=== PATIENT | male | born 1985 | race Hispanic/Latino ===

== ENCOUNTER 2016-11-23 09:51 | Inpatient (IN) | payer OTHER ==
[~2016-11-23] VITALS: Ht 170.2 cm; Wt 82.6 kg
[2016-11-23] MEDS ORDERED: ZOFR20TA PO (10:00)
[2016-11-23] MEDS ORDERED: TYLE500T78 PO (10:00)
[2016-11-23] MEDS ORDERED: diphenhydrAMINE INJ 50MG/ML VIAL (J1200) IV ONE (10:30)
[2016-11-23] MEDS ORDERED: METOCLOPRAMIDE INJ 10MG/2ML VIAL (J2765) IV ONE (10:30)
[2016-11-23] MEDS ORDERED: KETOROLAC 30 MG/ML VIAL (J1885) IV ONE (10:30)
[2016-11-23] MEDS ORDERED: NS 1,000 ML IV ONE (10:30)
[2016-11-23] MEDS ORDERED: MECLIZINE 25 MG TABLET PO ONE (10:30)
[2016-11-23] MEDS: MORPHINE 4 MG/ML 1ML SYRINGE IV ONE ×2 (10:45→10:51)
--- NOTE | 2016-11-23 11:09 | REP ---
CT BRAIN WITHOUT CONTRAST: HISTORY: Several day history of spontaneous onset headache , nausea, vomiting and dizziness. No comparison imaging. FINDINGS: Bone window settings demonstrate an intact bony calvarium. Visualized paranasal sinuses are clear. No intraorbital abnormality is seen. In the superior aspect of the cerebellar hemispheres, across the midline, the CT images demonstrate a 4.7 x 1.4 x 2.3 cm hyperdensity consistent with a parenchymal hemorrhage. There is a minimal adjacent vasogenic edema to the right of midline. Very slight compression of the fourth ventricle. Third and lateral ventricles are normal in appearance and size. Dawson-white differentiation pattern is normal above the tentorium. No midline shift is seen. No other evidence of hemorrhage. IMPRESSION: Unusual distribution parenchymal hemorrhage superior cerebellum across the midline, 4.7 cm in greatest diameter. Recommend MRI brain without and with IV gadolinium and MRA angiography. Findings were telephoned to the referring provider, GEE Mclain at that time of this dictation. Signed by Sameer Ocasio MD 11/23/2016 03:20 P
[2016-11-23 11:12] LABS: MEAN CORPUSCULAR HEMOGLOBIN 32.1 pg (27.0-33.0); MEAN CORPUSCULAR HGB CONC 36.8 g/dl (32.0-36.5); MEAN CORPUSCULAR VOLUME 87.4 fl (80.0-96.0); RED CELL DISTRIBUTION WIDTH 12.2 % (11.5-14.5)
[2016-11-23] MEDS ORDERED: ISOVUE-370 76% 100ML VIAL (Q9967) As Ordered ONE (11:12)
[2016-11-23 11:15] LABS: ALBUMIN 4.2 GM/DL (3.2-5.2); ALBUMIN/GLOBULIN RATIO 1.17 (1.00-1.93); ALKALINE PHOSPHATASE 84 U/L (45-117); ALT/SGPT 28 U/L (12-78); ANION GAP 5 MEQ/L (8-16); AST/SGOT 19 U/L (15-37); BILIRUBIN,DIRECT 0.2 MG/DL (0.0-0.2); BILIRUBIN,TOTAL 0.7 MG/DL (0.2-1.0); BLOOD UREA NITROGEN 20 MG/DL (7-18); CALCIUM LEVEL 8.7 MG/DL (8.5-10.1); CARBON DIOXIDE LEVEL 30 MEQ/L (21-32); CHLORIDE LEVEL 107 MEQ/L (98-107); GLOMERULAR FILTRATION RATE > 60.0 (>60); GLUCOSE, FASTING 95 MG/DL (70-105); POTASSIUM SERUM 3.9 MEQ/L (3.5-5.1); SODIUM LEVEL 142 MEQ/L (136-145); TOTAL PROTEIN 7.8 GM/DL (6.4-8.2)
[2016-11-23 11:30] LABS: ADD MANUAL DIFFER YES; DIFF SLIDE NUMBER 158
[2016-11-23 11:37] LABS: BASOPHILS 2 % (0-4); PLATELET CLUMPS LARGE AMT
[2016-11-23 11:48] LABS: ERYTHROCYTE SEDIMENTATION RATE 6 mm/hr (0-15)
--- NOTE | 2016-11-23 12:23 | REP ---
CT ANGIO OF THE BRAIN WITH IV CONTRAST: HISTORY: Intracranial hemorrhage. CT CONTRAST DOSE: 100 mL of intravenous Isovue 370. TECHNIQUE: Helical scanning is acquired. 2 mm axial images are reformatted. Maximal intensity projection images are generated reviewed in the coronal and sagittal imaging planes. Multiplanar reformation images are generated. In addition, surface rendered 3D imaging is generated and reviewed. CT ANGIOGRAPHIC FINDINGS: The skull base segments of the internal carotid arteries are unremarkable. The anterior and middle cerebral arteries are normal in appearance. Distal vertebral and basilar arteries are intact. The superior cerebellar and posterior cerebral arteries are open bilaterally. No vessel cutoff is seen. There is no evidence of rivera aneurysm. No arteriovenous malformation is visible. There is no evidence of dural sinus thrombosis. No abnormal vascular structure is seen in the vicinity of the posterior fossa hemorrhage observed on today's CT study. IMPRESSION: Negative CT angiography of the brain. There is no evidence of large vessel or high-flow arteriovenous malformation. No rivera aneurysm is seen. No vessel cutoff is noted. No evidence of dural sinus thrombosis. Signed by Sameer Ocasio MD 11/23/2016 03:20 P
--- NOTE | 2016-11-23 12:26 | REP ---
CT angiography of the neck with IV contrast: History: Intracranial hemorrhage. CT contrast dose: 100 mL of intravenous Isovue 370. CT technique: Helical scanning is acquired. 2 mm axial images are reformatted. Coronal and sagittal multiplanar re-formation images are generated. Thick slab maximum intensity projection images are generated on 3-D workstation along the surface rendered rotational 3-D images. CT angiographic findings: Great vessel origins are unremarkable. Common carotid and bilateral cerebellar arteries are patent and unremarkable in the neck. Carotid bifurcations are free of atherosclerotic disease. There is no evidence of carotid artery or vertebral artery dissection on either side. No abnormal vasculature is seen. Impression: Normal CT angiography of the neck. Signed by Sameer Ocasio MD 11/23/2016 03:20 P
[2016-11-23 13:12] LABS: INR 1.05
[2016-11-23] MEDS ORDERED: levETIRAcetam INJection 1,000 MG in D5W 100 ML IV ONE (16:00)
[2016-11-23] MEDS: KCL 20MEQ IN D5/NS 1000ML 1,000 ML IV SCH (16:25)
[2016-11-23] MEDS: ACETAMINOPHEN TAB 650MG DOSE (2X325MG) PO SCH ×2 (16:56→21:17)
[2016-11-23 17:30] VITALS: BP 101/55
[2016-11-23] MEDS: ONDANSETRON 4MG/2ML VIAL (J2405) IV SCH (18:11)
[2016-11-23 20:00] VITALS: BP 100/62
[2016-11-23 21:00] VITALS: BP 97/64
[2016-11-23] MEDS: levETIRAcetam 250MG TABLET (KEPPRA) PO SCH (21:18)
[2016-11-23 22:00] VITALS: BP 91/50
[2016-11-23 23:00] VITALS: BP 94/54
[2016-11-24] VITALS (18 sets, daily range): BP systolic 87–133; BP diastolic 47–94
[2016-11-24] MEDS: KCL 20MEQ IN D5/NS 1000ML 1,000 ML IV SCH ×4 (00:32→19:47)
[2016-11-24] MEDS: ACETAMINOPHEN TAB 650MG DOSE (2X325MG) PO SCH ×6 (00:32→19:47)
[2016-11-24] MEDS: ONDANSETRON 4MG/2ML VIAL (J2405) IV SCH ×4 (00:32→17:42)
[2016-11-24 04:51] LABS: MEAN CORPUSCULAR HEMOGLOBIN 31.5 pg (27.0-33.0); MEAN CORPUSCULAR HGB CONC 35.9 g/dl (32.0-36.5); MEAN CORPUSCULAR VOLUME 87.7 fl (80.0-96.0); RED CELL DISTRIBUTION WIDTH 12.2 % (11.5-14.5)
[2016-11-24 05:06] LABS: ALBUMIN 3.4 GM/DL (3.2-5.2); ALBUMIN/GLOBULIN RATIO 1.13 (1.00-1.93); ALKALINE PHOSPHATASE 67 U/L (45-117); ALT/SGPT 20 U/L (12-78); ANION GAP 5 MEQ/L (8-16); AST/SGOT 14 U/L (15-37); BILIRUBIN,TOTAL 0.7 MG/DL (0.2-1.0); BLOOD UREA NITROGEN 13 MG/DL (7-18); CALCIUM LEVEL 8.1 MG/DL (8.5-10.1); CARBON DIOXIDE LEVEL 29 MEQ/L (21-32); CHLORIDE LEVEL 112 MEQ/L (98-107); CREATININE FOR GFR 1.12 MG/DL (0.70-1.30); GLOMERULAR FILTRATION RATE > 60.0 (>60); GLUCOSE, FASTING 110 MG/DL (70-105); POTASSIUM SERUM 4.1 MEQ/L (3.5-5.1); SODIUM LEVEL 146 MEQ/L (136-145); TOTAL PROTEIN 6.4 GM/DL (6.4-8.2)
--- NOTE | 2016-11-24 06:00 | REPUSA ---
CLINICAL HISTORY: Intracerebral hematoma. Followup exam. TECHNIQUE: Multiple axial brain CT scan sections were obtained from base to vertex without contrast a dministration. COMMENTS: Comparison to the prior exam performed on 11/23/2016. 4.4x1.3 cm acute intraparenchymal hematoma of the cerebellar vermis, left cerebellar hemisphere and t he right cerebellar hemisphere extending to its lateral aspect. Unchanged mild associated edema. The study shows normal configuration of sella turcica. There is no mass effect or midline shift. No hydrocephalus is present. No abnormal calcifications are noted. The sinuses and mastoid air cells are patent. IMPRESSION: Unchanged intracerebellar hematoma. Unchanged mild edema. Thank you for your kind referral of this patient.
[2016-11-24] MEDS: levETIRAcetam 250MG TABLET (KEPPRA) PO SCH ×3 (10:04→21:11)
[2016-11-24 12:20] LABS: PLTBLUE- EDTA FREE CALC 143 K/mm3 (172-450); PLTBLUE- EDTA FREE MACHINE 130 K/mm3 (172-450)
[2016-11-24 12:29] LABS: REASON FOR REVIEW COMPREHENSIVE REVIEW
--- NOTE | 2016-11-24 13:51 | CR ---
DATE OF CONSULTATION: 11/24/2016 REASON FOR REFERRAL: Intraparenchymal brain hemorrhage, to rule out hematologic/bleeding disorder. HISTORY OF THE PRESENT ILLNESS: Mr. Lazo is a 31-year-old man who developed sudden headaches 3 days ago. He eventually went to [facility] Emergency Room (ER) yesterday and had a CT scan, which showed a parenchymal hemorrhage in the superior cerebellum. He was admitted for this. He is currently on observation. A repeat head CT showed no change in his intracerebellar hematoma and unchanged mild edema. He has been started on levetiracetam. Hematology was consulted to rule out a hematologic or bleeding disorder. PAST MEDICAL HISTORY: None. SURGICAL HISTORY: No history of surgery in the past. He did have a history of wisdom tooth extraction with no extraordinary bleeding. Mr. Lazo also denies any easy bruising. He has had no epistaxis. No gum bleeding. No rectal bleeding and no urinary bleeding. No known drug allergies. MEDICATIONS: Acetaminophen and ondansetron; there were the medications prior to admission. His medications now include levetiracetam, ondansetron and acetaminophen. FAMILY HISTORY: No history of bleeding disorder. PERSONAL/SOCIAL HISTORY: He does not smoke. He used to drink alcoholic beverages but stopped drinking 2 years ago. He used to drink alcoholic beverages only occasionally according to him. He is . He has a 7-year-old son. He reports that all of his siblings are fine with no medical issues. On physical exam, he was lying comfortably in the bed, not in distress. He had pinkish conjunctivae, anicteric sclerae. No oral mucosal lesions. No palpable cervical, inguinal or axillary lymphadenopathy. Lungs: Clear. No rales, rhonchi or wheeze. S1, S2 regular. No murmur. No gallop. No hematomas or ecchymoses on his upper and lower extremities, front and back. Abdomen: Soft, nontender, no guarding. No hepatosplenomegaly. No palpable masses. Positive bowel sounds. Extremities: No calf swelling, calf tenderness and no pedal edema. No clubbing. No cyanosis. IMPRESSION AND PLAN: Mr. Lazo is a 31-year-old man who is currently admitted for an intracerebellar hemorrhage. On the question of a bleeding disorder, Mr. Lazo does not present with any symptoms of a bleeding disorder. He has no easy bruising, and he has not had any bleeding problems. He also has no history of anemia and no history of blood transfusions. His CBC today showed a platelet count of 106k/mm3. His hemoglobin level came back at 12.9 g/dL. He had a normal WBC count. There was note of platelet clumping on yesterday's CBC. His coagulation profile, PT, PTT came back normal. I discussed with Mr. Lazo that he likely does not have a bleeding disorder, but we will recheck his platelet count today and have the pathologist review his peripheral smear for any abnormalities. Thank you very much for this referral. Copy To: Dr. Vyas cc: Marquez Vyas MD
--- NOTE | 2016-11-24 21:24 | CR ---
DATE OF CONSULTATION: 11/24/2016 REFERRING PHYSICIAN: Dr. Marquez Vyas REASON FOR CONSULTATION: Cerebellar hemorrhage. HISTORY OF PRESENT ILLNESS: Rupert Lazo is a 31-year-old man was at his baseline state of health until yesterday evening, when he was watching TV and went to use the restroom. It was around 7 p.m. and he suddenly fel 9/10 headache behind his eyes. He suddenly felt dizzy and imbalance. He felt nausea, vomiting, dizziness, blurred vision, photophobia, and phonophobia. Initially, he thought that he was having a severe migraine. He came to emergency department, where CT scan of his head showed a 4.6 cm bilateral cerebellar hemorrhage. The patient states that his great- grandmother of a subarachnoid hemorrhage due to rupture of aneurysm in her brain. His grandfather had an aneurysm in his abdomen. He denies taking any new medications. He denies any trauma or falls. He denies any neck pain, back pain, seizures, dysphagia, dysarthria, diplopia, urinary incontinence. HOME MEDICATIONS: None. PAST MEDICAL HISTORY: None. ALLERGIES: None. SOCIAL HISTORY: He denies smoking, alcohol, or illicit drugs. FAMILY HISTORY: His great-grandmother had cerebral aneurysm and subarachnoid hemorrhage. His grandfather had abdominal aortic aneurysm. REVIEW OF SYSTEMS: All systems were reviewed and were found to be noncontributory. PHYSICAL EXAMINATION: Temperature 96.5, blood pressure 112/56, 97% saturation on room air, pulse 46, respiratory rate 20. HEART: Regular rate and rhythm. LUNGS: Clear to auscultation. No gross musculoskeletal abnormalities. EAR, NOSE, THROAT: Within normal limits. The patient is awake, alert, oriented to place, person, and time. Normal speech, comprehension, and repetition. Extraocular muscles are intact. No facial weakness. Tongue and uvula are midline. Strength 5/5 in all four extremities. Deep tendon flexes are 2+ throughout. Normal sensation. His gait is unsteady. He is mildly ataxic. He has gaze-evoked nystagmus. He has mild bilateral dysmetria, worse on left side. DIAGNOSTIC STUDIES: His CT scan of head yesterday and today showed stable 4.6 cm bilateral cerebellar hematoma. There is no compression of 4th ventricle or tonsillar herniation. His CT angiography of head and neck did not reveal any stenosis or cerebral aneurysm. ASSESSMENT: Bilateral midline 4.6 cm cerebellar hemorrhage of unclear etiology, as patient denies any history of trauma, hypertension, or use of anticoagulants. PLAN: 1. Topamax 25 mg by mouth twice a day to improve his dizziness symptomatically. 2. Continue telemonitoring and close monitoring in intensive care unit. His platelet count is 106, which is not significant enough to cause intracranial bleeding. Dr. yVas has consulted hematology to evaluate for any bleeding disorders. 3. Physical and occupational therapy. 4. MRA of brain. 5. Follow with our office in 1 month after hospital discharge. The patient will be closely monitored by neurosurgery and will follow with neurosurgery as well.
[2016-11-25] VITALS: BP 97/59
[2016-11-25 04:00] VITALS: BP 100/58
[2016-11-25] MEDS: ACETAMINOPHEN TAB 650MG DOSE (2X325MG) PO SCH ×4 (04:36→12:00)
[2016-11-25] MEDS: KCL 20MEQ IN D5/NS 1000ML 1,000 ML IV SCH ×2 (04:36→09:03)
[2016-11-25 05:02] LABS: MEAN CORPUSCULAR HEMOGLOBIN 31.4 pg (27.0-33.0); MEAN CORPUSCULAR VOLUME 87.2 fl (80.0-96.0); RED CELL DISTRIBUTION WIDTH 12.1 % (11.5-14.5); WHITE BLOOD COUNT 4.4 K/mm3 (4.0-10.0)
[2016-11-25 05:14] LABS: ALBUMIN 3.6 GM/DL (3.2-5.2); ALKALINE PHOSPHATASE 67 U/L (45-117); ALT/SGPT 24 U/L (12-78); ANION GAP 7 MEQ/L (8-16); AST/SGOT 19 U/L (15-37); CARBON DIOXIDE LEVEL 27 MEQ/L (21-32); CHLORIDE LEVEL 113 MEQ/L (98-107); CREATININE FOR GFR 0.93 MG/DL (0.70-1.30); GLOMERULAR FILTRATION RATE > 60.0 (>60); GLUCOSE, FASTING 108 MG/DL (70-105); POTASSIUM SERUM 3.7 MEQ/L (3.5-5.1); SODIUM LEVEL 147 MEQ/L (136-145); TOTAL PROTEIN 6.6 GM/DL (6.4-8.2)
[2016-11-25 05:36] LABS: BILIRUBIN,TOTAL 0.4 MG/DL (0.2-1.0)
[2016-11-25 05:42] LABS: BLOOD UREA NITROGEN 6 MG/DL (7-18)
[2016-11-25] MEDS: ONDANSETRON 4MG/2ML VIAL (J2405) IV SCH ×3 (06:01→13:04)
[2016-11-25 08:00] VITALS: BP 101/70
[2016-11-25] MEDS: levETIRAcetam 250MG TABLET (KEPPRA) PO SCH ×2 (09:02→20:47)
[2016-11-25 10:00] VITALS: BP 95/64
[2016-11-25 14:55] VITALS: BP 109/68
[2016-11-25] MEDS: ACETAMINOPHEN TAB 650MG DOSE (2X325MG) PO PRN (20:46)
[2016-11-25 22:00] VITALS: BP 107/56
[2016-11-26 06:10] LABS: MEAN CORPUSCULAR HEMOGLOBIN 32.1 pg (27.0-33.0); MEAN CORPUSCULAR VOLUME 86.7 fl (80.0-96.0); WHITE BLOOD COUNT 5.3 K/mm3 (4.0-10.0)
[2016-11-26 06:24] LABS: ALBUMIN 3.8 GM/DL (3.2-5.2); ALBUMIN/GLOBULIN RATIO 1.09 (1.00-1.93); ALKALINE PHOSPHATASE 74 U/L (45-117); ALT/SGPT 26 U/L (12-78); ANION GAP 7 MEQ/L (8-16); AST/SGOT 25 U/L (15-37); BILIRUBIN,TOTAL 0.4 MG/DL (0.2-1.0); BLOOD UREA NITROGEN 10 MG/DL (7-18); CALCIUM LEVEL 8.5 MG/DL (8.5-10.1); CARBON DIOXIDE LEVEL 29 MEQ/L (21-32); CHLORIDE LEVEL 105 MEQ/L (98-107); CREATININE FOR GFR 1.15 MG/DL (0.70-1.30); GLOMERULAR FILTRATION RATE > 60.0 (>60); GLUCOSE, FASTING 85 MG/DL (70-105); POTASSIUM SERUM 3.6 MEQ/L (3.5-5.1); SODIUM LEVEL 141 MEQ/L (136-145); TOTAL PROTEIN 7.3 GM/DL (6.4-8.2)
[2016-11-26 06:57] VITALS: BP 97/53
--- NOTE | 2016-11-26 07:06 | REP ---
CT BRAIN WITHOUT CONTRAST: CT brain is performed without IV contrast and compared to prior study of 11/24/2016. The known posterior fossa hemorrhage is stable in size and appearance with mild surrounding edema. No new areas of hemorrhage are seen. Ventricles are normal in size and position. There is no ventricular dilatation. There is midline shift. No other abnormalities are seen. IMPRESSION: Stable exam. Signed by Luis Carlos Dawson MD 11/26/2016 05:26 P
[2016-11-26] MEDS: levETIRAcetam 250MG TABLET (KEPPRA) PO SCH ×2 (09:13→20:29)
--- NOTE | 2016-11-26 10:03 | REP ---
MRA BRAIN WITHOUT CONTRAST: HISTORY: Cerebellar hemorrhage. COMPARISON: CT ANGIO head 11/23/2016. There is no aneurysm, arteriovenous malformation or atherosclerotic lesion. Major intracranial vessels are patent. The vertebral arteries are equal in size. An intraparenchymal hematoma is present in the cerebellum unchanged compared to the previous study. IMPRESSION: There is no aneurysm, arteriovenous malformation or atherosclerotic lesion. Signed by Ravi Rodas MD 11/26/2016 10:12 A
[2016-11-26] MEDS: ONDANSETRON 4MG/2ML VIAL (J2405) IV PRN ×2 (10:55→16:40)
[2016-11-26 14:00] VITALS: BP 94/55
[2016-11-26] MEDS ORDERED: METOCLOPRAMIDE 5 MG TAB PO PRN (17:00)
[2016-11-26] MEDS: ACETAMINOPHEN TAB 650MG DOSE (2X325MG) PO PRN (20:30)
[2016-11-26 22:00] VITALS: BP 116/72
[2016-11-27 06:00] VITALS: BP 121/68
[2016-11-27] MEDS: levETIRAcetam 250MG TABLET (KEPPRA) PO SCH ×2 (08:53→21:23)
[2016-11-27] MEDS: TOPIRAMATE (TopAMAX) 25 MG TAB PO SCH ×2 (08:58→21:23)
[2016-11-27 09:00] VITALS: BP 98/53
[2016-11-27 09:18] LABS: BASO % 0.6 % (0.0-1.0); EOS # 0.2 10^3/uL (0.0-0.50); EOS % 3.2 % (0.0-3.0); IMMATURE GRANULOCYTE % 0.2 % (0-0); LYMPH # 1.6 10^3/uL (1.5-4.5); LYMPH % 31.3 % (24.0-44.0); MEAN CORPUSCULAR HEMOGLOBIN 30.5 pg (27.0-33.0); MEAN CORPUSCULAR HGB CONC 35.1 g/dl (32.0-36.5); MEAN CORPUSCULAR VOLUME 86.7 fl (80.0-96.0); MONO # 0.4 10^3/uL (0.0-0.8); MONO % 7.1 % (0.0-5.0); NEUTROPHILS # 2.9 10^3/uL (1.8-7.7); NEUTROPHILS % 57.6 % (36.0-66.0); PLATELET COUNT, AUTOMATED 92 10^3/uL (150-450); RED CELL DISTRIBUTION WIDTH 12.4 % (11.5-14.5); WHITE BLOOD COUNT 5.1 10^3/uL (4.0-10.0)
[2016-11-27 09:57] LABS: ALBUMIN/GLOBULIN RATIO 1.25 (1.00-1.93); ALKALINE PHOSPHATASE 82 U/L (45-117); ALT/SGPT 29 U/L (12-78); ANION GAP 5 MEQ/L (8-16); AST/SGOT 25 U/L (15-37); BILIRUBIN,TOTAL 0.7 MG/DL (0.2-1.0); BLOOD UREA NITROGEN 14 MG/DL (7-18); CALCIUM LEVEL 9.3 MG/DL (8.5-10.1); CARBON DIOXIDE LEVEL 30 MEQ/L (21-32); CHLORIDE LEVEL 105 MEQ/L (98-107); CREATININE FOR GFR 1.13 MG/DL (0.70-1.30); GLOMERULAR FILTRATION RATE > 60.0 (>60); GLUCOSE, FASTING 96 MG/DL (70-105); MAGNESIUM LEVEL 2.2 MG/DL (1.8-2.4); POTASSIUM SERUM 4.3 MEQ/L (3.5-5.1); SODIUM LEVEL 140 MEQ/L (136-145); TOTAL PROTEIN 7.2 GM/DL (6.4-8.2)
[2016-11-27] MEDS: ACETAMINOPHEN TAB 650MG DOSE (2X325MG) PO PRN ×3 (12:25→23:56)
--- NOTE | 2016-11-27 15:02 | IPNPDOC ---
Text Note Date of Service The patient was seen on 11/27/16. NOTE Subjective: Patient is a 31 year old male with no significant PMhx who presented to the ER after he had a severe headache while watching TV. Upon arrival to the ER a CT scan revealed where CT a 4.6 cm bilateral cerebellar hemorrhage. He noted that his grandmother may have had an brain aneurysm. Patient was admitted to the neurosurgical service and did not require any intervention. Patient was seen and examined at the bedside. Currently he notes that he is still very dizzy upon sitting up and complains of nausea, but no vomiting. Objective: Vitals (See below) General: Lying in bed, no acute distress, comfortable, AAOx3 HEENT: NC, AT CVS: RRR, +S1S2 Lungs: Fair air entry b/l, -w/r/r Abdomen: Soft, ND, NT Extremities: - Edema, - Calf tenderness Assessment and plan: Parenchymal hemorrhage superior cerebellum across midline - Presented with severe headache, nausea, photophobia and phonobhonia - Physical was unrevealing - Labs revealed thrombocytopenia - Head CT 11/23: Parenchymal hemorrhage superior cerebellum across midline - CTA Head 11/23: Negative CTA - CTA Neck 11/23: Normal - Head CT 11/24: Unchanged - Head CT 11/25: Stable scan - Brain MRI 11/26: No aneurysm, AVM or atherosclerotic lesions - c/w Seizure prophylaxis as per neurosurgery with [facility] - Neurosurgery has originally admitted the patient and transferred to hospitalist service on 11/27 Nausea / Dizziness - possibly 2/2 migraine headaches, possibly 2/2 bleed - Neurology has evaluated patient, has recommended Topiramate - Started Topiramate 25 BID today - Will re-evaluate - c/w Physical therapy as tolerated - Will look into placement options for continuing physical therapy - c/w Zofran PRN - Neurology consulted; appreciate their input Thrombocytopenia - likely 2/2 clumping - EDTA tube revealed count slightly higher at 143 - Hematology consulted; appreciate their input - unlikely to have a bleeding disorder DVT prophylaxis - c/w SCD VS,Fishbone, I+O VS, Fishbone, I+O Laboratory Tests 11/27/16 08:52 Red Blood Count 4.89, Mean Corpuscular Volume 86.7, Mean Corpuscular Hemoglobin 30.5, Mean Corpuscular Hemoglobin Concent 35.1, Red Cell Distribution Width 12.4 , Neutrophils (%) (Auto) 57.6, Lymphocytes (%) (Auto) 31.3, Monocytes (%) (Auto ) 7.1 H, Eosinophils (%) (Auto) 3.2 H, Basophils (%) (Auto) 0.6, Neutrophils # ( Auto) 2.9, Lymphocytes # (Auto) 1.6, Monocytes # (Auto) 0.4, Eosinophils # (Auto ) 0.2, Basophils # (Auto) 0.0, Calcium Level 9.3, Aspartate Amino Transf (AST/ SGOT) 25, Alanine Aminotransferase (ALT/SGPT) 29, Alkaline Phosphatase 82, Total Bilirubin 0.7 #, Total Protein 7.2, Albumin 4.0 Vital Signs Date Time Temp Pulse Resp B/P (MAP) Pulse Ox O2 Delivery O2 Flow Rate FiO2 11/27/16 09:00 98.0 48 16 98/53 (68) 96 Room Air FARTUN TRISTAN MD Nov 27, 2016 15:02
[2016-11-27 16:00] VITALS: BP 100/51
--- NOTE | 2016-11-27 21:12 | ECGEPIP ---
Stationary ECG Study [facility] Test Date: 2016-11-27 Pat Name: KARRI AGUIRRE Department: Room: [place] [address] Gender: M Computer Engineering Technologist: FRANCOIS : 1985 Requested By: FARTUN TRISTAN Order Number: [id number] Reading MD: Horacio Martinez Measurements Intervals Rhine Rate: 49 P: 65 AZ: 155 QRS: 69 QRSD: 85 T: 36 QT: 443 QTc: 402 Interpretive Statements SINUS BRADYCARDIA NO PRIOR TRACING IN THE SYSTEM Electronically Signed On 11-27-2016 21:12:11 EDT by Horacio Martinez
[2016-11-27 22:00] VITALS: BP 117/62
[2016-11-28 06:00] VITALS: BP 122/61
[2016-11-28 09:07] VITALS: BP 109/60
[2016-11-28] MEDS: levETIRAcetam 250MG TABLET (KEPPRA) PO SCH ×2 (09:28→20:14)
[2016-11-28] MEDS: TOPIRAMATE (TopAMAX) 25 MG TAB PO SCH ×2 (09:28→20:14)
[2016-11-28] MEDS ORDERED: ONDANSETRON 4 MG ORAL DISINTEGRATING TAB (S0181) SL PRN (10:00)
--- NOTE | 2016-11-28 10:54 | IPNPDOC ---
Text Note Date of Service The patient was seen on 11/28/16. NOTE Subjective: Patient is a 31 year old male with no significant PMhx who presented to the ER after he had a severe headache while watching TV. Upon arrival to the ER a CT scan revealed where CT a 4.6 cm bilateral cerebellar hemorrhage. He noted that his grandmother may have had an brain aneurysm. Patient was admitted to the neurosurgical service and did not require any intervention. Patient was seen and examined at the bedside. Patient notes that he feel less nauseous, had been ambulating a little yesterday. Still notes dizziness. Will attempt to work with physical therapy today with vestibular focus. Objective: Vitals (See below) General: Lying in bed, no acute distress, comfortable, AAOx3 HEENT: NC, AT CVS: RRR, +S1S2 Lungs: Fair air entry b/l, -w/r/r Abdomen: Soft, ND, NT Extremities: - Edema, - Calf tenderness Assessment and plan: Nausea / Dizziness - possibly 2/2 parenchymal bleed, possibly 2/2 migraine headaches - Has noted some improvement, but dizziness still persists - c/w Topiramate 25 BID - c/w Physical therapy to be continued; will try eye patch (to be alternated) - Will look into placement options for continuing physical therapy; possibly home depending on PT recommendations - c/w Zofran PRN - Neurology consulted; appreciate their input s/p Parenchymal hemorrhage superior cerebellum across midline - Presented with severe headache, nausea, photophobia and phonophobia - Physical was unrevealing - Labs revealed thrombocytopenia - Head CT 11/23: Parenchymal hemorrhage superior cerebellum across midline - CTA Head 11/23: Negative CTA - CTA Neck 11/23: Normal - Head CT 11/24: Unchanged - Head CT 11/25: Stable scan - Brain MRI 11/26: No aneurysm, AVM or atherosclerotic lesions - c/w Seizure prophylaxis as per neurosurgery with [facility] - Neurosurgery has originally admitted the patient and transferred to hospitalist service on 11/27 Thrombocytopenia - likely 2/2 clumping - EDTA tube revealed count slightly higher at 143 - Hematology consulted; appreciate their input - unlikely to have a bleeding disorder DVT prophylaxis - c/w SCD VS,Fishbone, I+O VS, Fishbone, I+O Vital Signs Date Time Temp Pulse Resp B/P (MAP) Pulse Ox O2 Delivery O2 Flow Rate FiO2 11/28/16 09:07 97.5 53 16 109/60 (56) 97 Room Air I&O- Last 24 Hours up to 6 AM 11/29/16 05:59 Intake Total 0 ml Output Total 0 ml Balance 0 ml FARTUN TRISTAN MD Nov 28, 2016 10:54
[2016-11-28 13:55] VITALS: BP 100/60
[2016-11-28 22:00] VITALS: BP 95/55
[2016-11-29 06:00] VITALS: BP 91/55
[2016-11-29] MEDS: TOPIRAMATE (TopAMAX) 25 MG TAB PO SCH (09:53)
[2016-11-29] MEDS: levETIRAcetam 250MG TABLET (KEPPRA) PO SCH (09:53)
[2016-11-29] MEDS ORDERED: KEPP250T5 PO (10:01)
[2016-11-29] MEDS ORDERED: TOPA1TAB PO (10:01)
--- NOTE | 2016-11-29 16:27 | DSES ---
DATE OF ADMISSION: 11/23/2016 DATE OF DISCHARGE: 11/29/2016 PRIMARY CARE PROVIDER: [facility] REFERRING PHYSICIAN: None. CONSULTING PHYSICIANS: 1. Dr. Briseyda Parker. 2. Dr. Grant Eastman. CONDITION ON DISCHARGE: Stable. FINAL DIAGNOSES: 1. Parenchymal hemorrhage at the superior cerebellum across the midline. 2. Nausea and dizziness possibly secondary to parenchymal bleed, possibly secondary to migraine headaches. PROCEDURES: None. HISTORY OF PRESENT ILLNESS: The patient is a 31-year-old male with no past medical history who presented to the emergency room (ER) after he had a severe headache while watching TV. Upon arrival to the emergency room, a CT scan revealed he had a 4.6 cm bilateral cerebral hemorrhage. He noted that his grandmother may have had a brain aneurysm. The patient was admitted to neurosurgical service and did not require any intervention. Throughout his hospital course, the patient remained stable and had several subsequent imaging studies of his brain which did not show any progression but showed stability of his intracerebral bleed. The patient was transferred over to the hospitalist service on 11/27/2016. HOSPITAL COURSE: 1. Nausea/dizziness, possibly secondary to parenchymal bleed, possibly secondary to migraine headaches. He has noted improvement throughout the hospital course. He has been started on topiramate 25 mg by mouth twice a day as per neurology's recommendations. His physical therapy was continued. The patient had ultimately cleared physical therapy on 11/28/2016 and had recommended home placement with outpatient physical therapy. The patient was given Zofran as needed for nausea. 2. Status post parenchymal hemorrhage at the superior cerebellum across the midline. He presented with severe headache, nausea, photophobia, and phonophobia. Physical was unrevealing. Laboratories revealed thrombocytopenia. Head CT on 11/23/2016 revealed parenchymal hemorrhage at the superior cerebellum across at midline. CT of neck on 11/23/[address] on 11/24/2016 and 11/25/2016 were unremarkable. Brain MRI on 11/26/2016 revealed no aneurysm, arteriovenous malformation (AVM), or atherosclerotic disease. The patient was put on seizure prophylaxis as per neurosurgery with Keppra 750 twice a day. Neurosurgical services had originally admitted the patient but had transferred the patient to hospitalist care on . 3. Thrombocytopenia, likely secondary to clumping. Ethylenediaminetetraacetic (EDTA) tube revealed count that was slightly higher at 143. However, it was still slightly low. Hematology was consulted, Dr. Eastman, and they had indicated that the patient is unlikely to have a bleeding disorder. 4. Deep vein thrombosis (DVT) prophylaxis. He was put on sleeve compression devices. DISCHARGE MEDICATIONS: The patient is being discharged home with the following medication list: - Keppra 750 mg by mouth twice a day, dispense #60 - topiramate 25 mg by mouth twice a day, dispense #60 - acetaminophen 500 mg by mouth every four hours as needed for pain - Zofran 4 mg by mouth every six hours as needed for nausea DISCHARGE INSTRUCTIONS: The patient has been advised to followup with his primary care provider and neurology within the next seven days. He has been advised to followup with neurosurgery within the next 2-3 months and get subsequent imaging via brain MRI prior to meeting up with neurosurgery. The patient was advised to remain compliant with treatment plan and medications and return to the emergency room if he experiences any problems. TIME SPENT ON DISCHARGE: Greater than 35 minutes.
== END 2016-11-29 12:02 | disposition home or self-care (01) | DRG 66 ==
LOC: M ED 09:51 → M ED INP 13:20 → M ICU 17:28 → M MSPAV 11-25 14:58
PROVIDERS: ADMIT Neurological Surgery; ATTEND Internal Medicine
DX: I61.4 Nontraumatic intracerebral hemorrhage in cerebellum (principal); G43.909 Migraine, unspecified, not intractable, without status migrainosus; D69.6 Thrombocytopenia, unspecified; Z79.899 Other long term (current) drug therapy

== ENCOUNTER 2016-12-07 08:36 | Emergency (ER) | payer OTHER ==
[~2016-12-07] VITALS: Ht 170.2 cm; Wt 77.3 kg
[~2016-12-07 08:36] MED LIST: KEPP250T5 PO; TOPA1TAB PO; TYLE500T78 PO; ZOFR20TA PO
--- NOTE | 2016-12-07 10:02 | REP ---
CT Head without contrast HISTORY: Syncope COMPARISON: 11/25/2016 Edema is present in the cerebellum at the site of the previously seen cerebellar intraparenchymal hematoma. There is minimal mass effect on the fourth ventricle and quadrigeminal plate cistern. There is no acute infarct, mass or midline shift. There is no hydrocephalus or extra cerebral collection. There is no fracture. The visualized sinuses are clear. IMPRESSION: There is residual edema in the cerebellum at the site of the previously seen and cerebellar intraparenchymal hematoma. There is minimal mass effect on the fourth ventricle and quadrigeminal plate cistern. Signed by Ravi Rodas MD 12/07/2016 09:53 A
[2016-12-07 10:37] LABS: BASO % 0.4 % (0.0-1.0); EOS # 0.1 10^3/uL (0.0-0.50); EOS % 1.1 % (0.0-3.0); IMMATURE GRANULOCYTE % 0.1 % (0-0); LYMPH % 12.9 % (24.0-44.0); MEAN CORPUSCULAR HEMOGLOBIN 30.5 pg (27.0-33.0); MEAN CORPUSCULAR HGB CONC 36.1 g/dl (32.0-36.5); MEAN CORPUSCULAR VOLUME 84.7 fl (80.0-96.0); MONO # 0.7 10^3/uL (0.0-0.8); MONO % 9.5 % (0.0-5.0); NEUTROPHILS # 5.6 10^3/uL (1.8-7.7); WHITE BLOOD COUNT 7.3 10^3/uL (4.0-10.0)
[2016-12-07 11:07] LABS: ANION GAP 6 MEQ/L (8-16); BLOOD UREA NITROGEN 22 MG/DL (7-18); CALCIUM LEVEL 8.9 MG/DL (8.5-10.1); CARBON DIOXIDE LEVEL 29 MEQ/L (21-32); CHLORIDE LEVEL 105 MEQ/L (98-107); CREATININE FOR GFR 1.15 MG/DL (0.70-1.30); GLOMERULAR FILTRATION RATE > 60.0 (>60); GLUCOSE, FASTING 94 MG/DL (70-105); POTASSIUM SERUM 3.9 MEQ/L (3.5-5.1); SODIUM LEVEL 140 MEQ/L (136-145)
[2016-12-07 14:07] LABS: PLTBLUE- EDTA FREE CALC 155 K/mm3 (172-450); PLTBLUE- EDTA FREE MACHINE 141 10^3/uL (172-450)
[2016-12-07 15:23] VITALS: BP 104/69
--- NOTE | 2016-12-11 10:31 | ED PDOC ---
Post-Departure Follow-Up marilyn zamarripa faxed formal report of ct head for fu Cedric Guillen MD Dec 11, 2016 10:31
== END 2016-12-07 15:27 | disposition home or self-care (01) ==
LOC: M ED 08:36 → EDBD 08:36 → M ED 15:27
DX: R55 Syncope and collapse (principal); G32.81 Cerebellar ataxia in diseases classified elsewhere; Z79.899 Other long term (current) drug therapy; Z86.2 Personal history of diseases of the blood and blood-forming organs and certain disorders involving the immune mechanism; Z86.79 Personal history of other diseases of the circulatory system

== ENCOUNTER 2017-07-06 15:06 | Inpatient (IN) | payer OTHER ==
[2017-07-06 16:16] LABS: BASO % 0.2 % (0.0-1.0); EOS # 0.1 10^3/uL (0.0-0.50); EOS % 0.8 % (0.0-3.0); HEMOGLOBIN 14.2 g/dl (13.5-17.5); IMMATURE GRANULOCYTE % 0.2 % (0-3.0); LYMPH # 1.5 10^3/uL (1.5-4.5); LYMPH % 17.5 % (24.0-44.0); MEAN CORPUSCULAR HEMOGLOBIN 30.6 pg (27.0-33.0); MEAN CORPUSCULAR HGB CONC 34.6 g/dl (32.0-36.5); MEAN CORPUSCULAR VOLUME 88.4 fl (80.0-96.0); MONO # 0.5 10^3/uL (0.0-0.8); MONO % 5.4 % (0.0-5.0); NEUTROPHILS # 6.4 10^3/uL (1.8-7.7); NEUTROPHILS % 75.9 % (36.0-66.0); RED BLOOD COUNT 4.64 10^6/uL (4.30-6.10); RED CELL DISTRIBUTION WIDTH 13.2 % (11.5-14.5); WHITE BLOOD COUNT 8.5 10^3/uL (4.0-10.0)
[2017-07-06] MEDS: NS 1,000 ML IV ×3 (16:30→21:09)
[2017-07-06 16:42] LABS: ANION GAP 3 MEQ/L (8-16); BLOOD UREA NITROGEN 18 MG/DL (7-18); CALCIUM LEVEL 8.6 MG/DL (8.5-10.1); CARBON DIOXIDE LEVEL 30 MEQ/L (21-32); CHLORIDE LEVEL 108 MEQ/L (98-107); CREATININE FOR GFR 1.16 MG/DL (0.70-1.30); FREE T4 1.09 NG/DL (0.76-1.46); GLOMERULAR FILTRATION RATE > 60.0 (>60); GLUCOSE, FASTING 103 MG/DL (70-100); MAGNESIUM LEVEL 2.3 MG/DL (1.8-2.4); POTASSIUM SERUM 4.1 MEQ/L (3.5-5.1); SODIUM LEVEL 141 MEQ/L (136-145); TROPONIN I < 0.02 NG/ML (< 0.10)
[2017-07-06 16:45] LABS: POS COUNT POS FLAG
[2017-07-06 16:55] LABS: CK-MB VALUE MASS 7.1 NG/ML (<3.6); THYROID STIMULATING HORMONE 0.863 uIU/ML (0.358-3.740)
[2017-07-06 17:28] LABS: MB/CK RELATIVE INDEX 0.03 (< OR =4)
[2017-07-06 17:29] LABS: CPK CREATINE PHOSPHOKINASE 18784 U/L (39-308)
[2017-07-06] MEDS ORDERED: ONDANSETRON 4MG/2ML VIAL (J2405) IV (18:00)
[2017-07-06 19:00] LABS: INR 1.08; PROTHROMBIN TIME 14.1 SECONDS (12.4-14.5)
[2017-07-06 19:01] LABS: PARTIAL THROMBOPLASTIN TIME 27.1 SECONDS (26.8-37.9)
[2017-07-06 19:39] LABS: APPEARANCE, URINE CLEAR (CLEAR); BACTERIA, URINE AUTO NEGATIVE (NEGATIVE); BILIRUBIN, URINE AUTO NEGATIVE (NEGATIVE); BLOOD, URINE BLOOD NEGATIVE (NEGATIVE); COLOR, URINE STRAW (YELLOW); GLUCOSE, URINE (UA) AUTO NEGATIVE (NEGATIVE); KETONE, URINE AUTO NEGATIVE (NEGATIVE); LEUKOCYTE ESTERASE, URINE AUTO NEGATIVE (NEGATIVE); MUCUS, URINE SMALL (NEGATIVE); NITRITE, URINE AUTO NEGATIVE (NEGATIVE); PROTEIN, URINE AUTO NEGATIVE (NEGATIVE); RBC, URINE AUTO 0 /HPF (0-3); SPECIFIC GRAVITY URINE AUTO 1.011 (1.002-1.035); SQUAMOUS EPITHELIAL CELL UR AU 0 /HPF (0-6); UROBILINOGEN, URINE AUTO 0.2 mg/dL (0.0-2.0); WBC, URINE AUTO 0 /HPF (0-3)
[2017-07-06 20:51] LABS: BEDSIDE GLUCOSE 86 MG/DL (70-105)
[2017-07-06] MEDS: DOCUSATE SODIUM 100 MG CAP PO (21:00)
[2017-07-06] MEDS: ACETAMINOPHEN TAB 650MG DOSE (2X325MG) PO (21:13)
[2017-07-06 22:33] LABS: CPK CREATINE PHOSPHOKINASE 15550 U/L (39-308)
[2017-07-07] MEDS: NS 1,000 ML IV ×5 (02:41→20:30)
[2017-07-07 05:56] LABS: ALBUMIN 3.4 GM/DL (3.2-5.2); ALBUMIN/GLOBULIN RATIO 1.21 (1.00-1.93); ALKALINE PHOSPHATASE 69 U/L (45-117); ALT/SGPT 104 U/L (12-78); ANION GAP 5 MEQ/L (8-16); AST/SGOT 175 U/L (7-37); BILIRUBIN,TOTAL 0.3 MG/DL (0.2-1.0); BLOOD UREA NITROGEN 11 MG/DL (7-18); CALCIUM LEVEL 7.6 MG/DL (8.5-10.1); CARBON DIOXIDE LEVEL 26 MEQ/L (21-32); CHLORIDE LEVEL 113 MEQ/L (98-107); CHOLESTEROL LEVEL 110 MG/DL (<200); CHOLESTEROL RISK RATIO 3.793 (<5); CPK CREATINE PHOSPHOKINASE 12041 U/L (39-308); GLOMERULAR FILTRATION RATE > 60.0 (>60); GLUCOSE, FASTING 101 MG/DL (70-100); HDL CHOLESTEROL 29 MG/DL (>40); LDL CHOLESTEROL 62.4 MG/DL (<100); NON-HDL-C 81 MG/DL; SODIUM LEVEL 144 MEQ/L (136-145); TOTAL PROTEIN 6.2 GM/DL (6.4-8.2); TRIGLYCERIDES LEVEL 93 MG/DL (<150)
[2017-07-07] MEDS: PANTOPRAZOLE 40MG TAB (PROTONIX) PO (08:28)
[2017-07-07] MEDS: DOCUSATE SODIUM 100 MG CAP PO ×2 (08:28→20:30)
[2017-07-07 08:30] LABS: PLTBLUE- EDTA FREE CALC 149 K/mm3 (172-450)
[2017-07-07 09:11] LABS: PLTBLUE- EDTA FREE MACHINE 135 10^3/uL (172-450)
[2017-07-07 09:20] LABS: HEMATOCRIT 37.7 % (42.0-52.0); HEMOGLOBIN 13.1 g/dl (13.5-17.5); MEAN CORPUSCULAR HEMOGLOBIN 30.5 pg (27.0-33.0); MEAN CORPUSCULAR HGB CONC 34.7 g/dl (32.0-36.5); MEAN CORPUSCULAR VOLUME 87.7 fl (80.0-96.0); PLATELET COUNT, AUTOMATED 100 10^3/uL (150-450); RED CELL DISTRIBUTION WIDTH 13.2 % (11.5-14.5); WHITE BLOOD COUNT 5.4 10^3/uL (4.0-10.0)
[2017-07-07 13:51] LABS: CPK CREATINE PHOSPHOKINASE 12310 U/L (39-308)
[2017-07-07 21:51] LABS: CPK CREATINE PHOSPHOKINASE 11946 U/L (39-308)
[2017-07-08] MEDS: NS 1,000 ML IV ×2 (02:34→06:24)
[2017-07-08 04:44] LABS: HEMATOCRIT 36.7 % (42.0-52.0); HEMOGLOBIN 12.9 g/dl (13.5-17.5); MEAN CORPUSCULAR HEMOGLOBIN 30.7 pg (27.0-33.0); MEAN CORPUSCULAR HGB CONC 35.1 g/dl (32.0-36.5); MEAN CORPUSCULAR VOLUME 87.4 fl (80.0-96.0); PLATELET COUNT, AUTOMATED 164 10^3/uL (150-450); RED CELL DISTRIBUTION WIDTH 13.2 % (11.5-14.5); WHITE BLOOD COUNT 5.9 10^3/uL (4.0-10.0)
[2017-07-08 05:42] LABS: ALBUMIN 3.6 GM/DL (3.2-5.2); ALBUMIN/GLOBULIN RATIO 1.13 (1.00-1.93); ALKALINE PHOSPHATASE 76 U/L (45-117); ALT/SGPT 116 U/L (12-78); ANION GAP 5 MEQ/L (8-16); AST/SGOT 175 U/L (7-37); BILIRUBIN,TOTAL 0.4 MG/DL (0.2-1.0); BLOOD UREA NITROGEN 6 MG/DL (7-18); CALCIUM LEVEL 7.9 MG/DL (8.5-10.1); CARBON DIOXIDE LEVEL 27 MEQ/L (21-32); CHLORIDE LEVEL 111 MEQ/L (98-107); CPK CREATINE PHOSPHOKINASE 9918 U/L (39-308); CREATININE FOR GFR 0.91 MG/DL (0.70-1.30); GLOMERULAR FILTRATION RATE > 60.0 (>60); GLUCOSE, FASTING 98 MG/DL (70-100); POTASSIUM SERUM 3.9 MEQ/L (3.5-5.1); SODIUM LEVEL 143 MEQ/L (136-145); TOTAL PROTEIN 6.8 GM/DL (6.4-8.2)
[2017-07-08] MEDS: DOCUSATE SODIUM 100 MG CAP PO (09:00)
[2017-07-08] MEDS: PANTOPRAZOLE 40MG TAB (PROTONIX) PO (09:00)
== END 2017-07-08 10:25 | disposition home or self-care (01) | DRG 312 ==
LOC: M MS5PR 07-07 15:38 → M ED 15:06 → M ED INP 18:55 → M PCU 20:44
PROVIDERS: Hospitalist
DX: R55 Syncope and collapse (principal); M62.82 Rhabdomyolysis; D69.6 Thrombocytopenia, unspecified; Z86.73 Personal history of transient ischemic attack (TIA), and cerebral infarction without residual deficits

== ENCOUNTER 2018-01-16 06:33 | Emergency (ER) | payer OTHER ==
[2018-01-16] MEDS: NS 1,000 ML IV (07:00)
[2018-01-16 07:24] LABS: BASO % 0.2 % (0.0-1.0); EOS # 0.1 10^3/uL (0.0-0.50); EOS % 0.7 % (0.0-3.0); HEMATOCRIT 43.7 % (42.0-52.0); HEMOGLOBIN 15.4 g/dl (13.5-17.5); IMMATURE GRANULOCYTE % 0.4 % (0-3.0); LYMPH # 1.2 10^3/uL (1.5-4.5); LYMPH % 14.5 % (24.0-44.0); MEAN CORPUSCULAR HEMOGLOBIN 30.9 pg (27.0-33.0); MEAN CORPUSCULAR HGB CONC 35.2 g/dl (32.0-36.5); MEAN CORPUSCULAR VOLUME 87.8 fl (80.0-96.0); MONO # 0.7 10^3/uL (0.0-0.8); MONO % 8.4 % (0.0-5.0); NEUTROPHILS # 6.4 10^3/uL (1.8-7.7); NEUTROPHILS % 75.8 % (36.0-66.0); RED BLOOD COUNT 4.98 10^6/uL (4.30-6.10); RED CELL DISTRIBUTION WIDTH 12.8 % (11.5-14.5); WHITE BLOOD COUNT 8.5 10^3/uL (4.0-10.0)
[2018-01-16 07:35] LABS: PARTIAL THROMBOPLASTIN TIME 25.2 SECONDS (25.4-37.6); PROTHROMBIN TIME 14.3 SECONDS (12.1-14.4)
[2018-01-16 07:43] LABS: POS COUNT POS FLAG
[2018-01-16 07:49] LABS: ANION GAP 7 MEQ/L (8-16); BLOOD UREA NITROGEN 7 MG/DL (7-18); CALCIUM LEVEL 9.1 MG/DL (8.5-10.1); CARBON DIOXIDE LEVEL 29 MEQ/L (21-32); CHLORIDE LEVEL 105 MEQ/L (98-107); CREATININE FOR GFR 1.08 MG/DL (0.70-1.30); GLOMERULAR FILTRATION RATE > 60.0 (>60); GLUCOSE, FASTING 104 MG/DL (70-100); POTASSIUM SERUM 3.7 MEQ/L (3.5-5.1); SODIUM LEVEL 141 MEQ/L (136-145)
== END 2018-01-16 11:31 | disposition home or self-care (01) ==
LOC: M ED 06:33
DX: R51 Headache (principal); Z86.73 Personal history of transient ischemic attack (TIA), and cerebral infarction without residual deficits; Z87.820 Personal history of traumatic brain injury; M62.82 Rhabdomyolysis
CPT/HCPCS: 70551